=== PATIENT | female | born 1995 | race African-American/Black ===

== ENCOUNTER 2017-07-05 16:19 | Emergency (ER) | payer SELFPAY ==
[~2017-07-05] VITALS: Ht 160 cm; Wt 61.7 kg
[2017-07-05 16:57] VITALS: BP 111/71; PULSE 119
[2017-07-05 17:00] VITALS: RESP 16; TEMP 98.2
[2017-07-05] MEDS ORDERED: LACTATED RINGER'S 1000 ML INJ 1,000 ML IV SCH (17:16)
--- NOTE | 2017-07-05 17:24 | PD ---
HPI Chief Complaint N/V Date Seen: Jul 05, 2017 Time Seen: 17:10 Travel History International Travel<30 Days: No Contact w/Intl Traveler<30Days: No Known Affected Area: No History of Present Illness HPI Pt is a 22y/o G1 @ 28.4wks. She had PNC in [place] but recently relocated to [place] and is working on transitioning her Medicaid to start at [facility]. She presents today c/o N/V/D x 1.5d. She reports inability to tolerate any PO. No sick contacts. She has not eaten anything different than anyone else in her family. +FM. No LOF, VB, or ctx. is c/b Rh neg. (Had rhogam early in preg but not since). Weeks Gestation: 28 Para: 0 : 1 Last Menstrual Period: Jul 05, 2017 History Past Medical History Medical History: Denies Significant Hx Obstetric History Obstetric History 1. current Past Surgical History Surgical History: No Previous Surgery Family History Family History: Negative Social History Alcohol Use: No Tobacco Use: No Substance Abuse: Yes (occasional MJ) Allergies-Medications (Allergen,Severity, Reaction): Coded Allergies: No Known Allergies (Verified Allergy, Unknown, 07/05/17) Review of Systems Except as stated in HPI: all other systems reviewed are Neg Physical Exam Vital Signs Date Time Temp Pulse Resp B/P (MAP) Pulse Ox O2 Delivery O2 Flow Rate FiO2 07/05/17 17:00 98.2 07/05/17 17:00 16 07/05/17 16:57 119 111/71 (84) Narrative General: well developed, well nourished, no acute distress HEENT: normocephalic atraumatic, extraocular movements intact, neck supple Abdomen: soft, gravid, nontender, nondistended Extremities: full range of motion Skin: normal coloration, no rashes Neurologic: cranial nerves 2-12 grossly intact, normal muscle tone, normal gait Psychiatric: normal mood and affect, appropriate FHTs: 135, +accels, no decels, moderate variability, reactive [place]: irritable Cvx: deferred Data Data Vital Signs Reviewed: Yes Orders Orders Vital Signs (Adult) .ON ADMISSION (07/05/17 16:31) ^ Labor Status (07/05/17 16:31) Urinalysis - C+S If Indicated (07/05/17 16:31) Vital Signs (Adult) .ON ADMISSION (07/05/17 17:16) ^ Labor Status (07/05/17 17:16) ^ Non Stress Test (07/05/17 17:16) ^ Hydration (07/05/17 17:16) Lactated Ringer's 1000 Ml Inj (Lr 1000 M (07/05/17 17:16) Ondansetron Inj (Zofran Inj) (07/05/17 17:30) MDM Plan 22y/o G1 @ 28.4wks with N/V/D. -- likely viral gastroenteritis or food poisoning -- IVF boluses, IV zofran -- PO challenge -- check UA Discussed importance of PNC. Provided handout for [facility]. Diagnosis Diagnosis: Primary Impression: 28 weeks gestation of Additional Impression: Nausea, vomiting, and diarrhea Ken Dennis MD Jul 05, 2017 17:24
[2017-07-05] MEDS ORDERED: ONDANSETRON HCL 4 MG/2 ML VIAL IV PUSH ONE (17:30)
[2017-07-05 17:53] LABS: BLOOD, URINE NEG (NEG); COMMENT (UR) CULT NOT INDICATED; CULTURE IF INDICATED CULT NOT INDICATED; GLUCOSE,URINE NEG (NEG); KETONE, URINE 40 mg/dL (NEG); MUCUS URINE MANY /lpf (OCC); NITRITE,URINE NEG (NEG); SQUAMOUS EPITHELIAL CELL URINE 2 /hpf (0-5); URINE COLOR YELLOW (YELLW/STRAW)
== END 2017-07-05 19:44 | disposition home or self-care (01) ==
LOC: HOBED 16:19
DX: O21.2 Late vomiting of pregnancy (principal); Z3A.28 28 weeks gestation of pregnancy
CPT/HCPCS: 81001; 96361; 96374; 99284; J2405; J7120

== ENCOUNTER 2017-09-18 11:03 | Emergency (ER) | payer MEDICAID ==
[~2017-09-18] VITALS: Ht 160 cm; Wt 68.0 kg
[~2017-09-18 11:03] MED LIST: FERRTAB2 PO; ZANT150T2 PO
[2017-09-18 11:05] VITALS: BP 121/80; PULSE 130; RESP 14; TEMP 98.9; O2SAT 99
[2017-09-18] MEDS ORDERED: ONDANSETRON ODT 4 MG TAB PO ONE (11:45)
[2017-09-18] MEDS ORDERED: ACETAMINOPHEN 325 MG TAB PO ONE (11:45)
[2017-09-18 11:52] VITALS: PULSE 115; RESP 20
--- NOTE | 2017-09-18 11:56 | PD ---
HPI Chief Complaint: Cold / Flu Symptoms Time Seen by Provider: 11:30 Travel History International Travel<30 days: No Contact w/Intl Traveler<30days: No Traveled to known affect area: No History of Present Illness HPI 22 y/o who is 39 weeks estimated gestational age who presents by private vehicle for evaluation of cough, congestion, chills, myalgia, nausea, vomiting. Symptoms started 2 days ago. The cough is productive with yellow sputum. She reports 2-3 episodes of nonbloody emesis a day, particularly after she eats or drinks. The patient also reports that she has been experiencing lower abdominal lower back discomfort since yesterday which she describes as an aching pain which is constant and she like to go to the OB ED for evaluation of this pain. She denies any dysuria, flank pain, diarrhea, rash or recent travel. She does report that her cousins nephew was diagnosed with influenza this week and she has been contact with him. She has no other complaints at this time. [facility] Past Medical History ?: Social History Alcohol Use: No Tobacco Use: No Allergies-Medications (Allergen,Severity, Reaction): Coded Allergies: No Known Allergies (Verified Allergy, Unknown, 08/27/17) Reported Meds & Prescriptions Reported Meds & Active Scripts Active Zofran Odt (Ondansetron Odt) 4 Mg Tab 4 Mg SL Q6HR PRN Tamiflu (Oseltamivir Phosphate) 75 Mg Cap 75 Mg PO BID 5 Days Zantac (Ranitidine HCl) 150 Mg Tab 150 Mg PO BID Ferralet (Multi-Vit/Iron-Folic Pdxe-S90-Clk C) 90-1-0.012-120 mg Tab 1 Caplet PO DAILY 30 Days Review of Systems Except as stated in HPI: all other systems reviewed are Neg Physical Exam Narrative GENERAL: Pleasant well-developed well-nourished female in no acute distress. Tachycardic. SKIN: Warm and dry. HEAD: Atraumatic. Normocephalic. EYES: Pupils equal and round. No scleral icterus. No injection or drainage. ENT: No nasal bleeding or discharge. Mucous membranes pink and moist. No oral pharyngeal erythema or exudate. NECK: Trachea midline. No JVD. No lymphadenopathy. CARDIOVASCULAR: Regular rate and rhythm. No murmur appreciated. RESPIRATORY: No accessory muscle use. Clear to auscultation. Breath sounds equal bilaterally. No crackles. No wheezing. GASTROINTESTINAL: Abdomen gravid. MUSCULOSKELETAL: No obvious deformities. There is no CVA tenderness. NEUROLOGICAL: Awake and alert. No obvious cranial nerve deficits. Motor grossly within normal limits. Normal speech. Data Data Last Documented VS Vital Signs Date Time Temp Pulse Resp B/P (MAP) Pulse Ox O2 Delivery O2 Flow Rate FiO2 09/18/17 12:43 09/18/17 11:52 115 20 09/18/17 11:05 98.9 99 Orders Orders Influenzae A/B Antigen (09/18/17 11:38) Acetaminophen (Tylenol) (09/18/17 11:45) Oral Rehydration (09/18/17 11:38) Electrocardiogram (09/18/17 ) Ondansetron Odt (Zofran Odt) (09/18/17 11:45) Ed Discharge Order (09/18/17 12:19) [facility] Medical Decision Making Medical Screen Exam Complete: Yes Emergency Medical Condition: Yes Medical Record Reviewed: Yes Differential Diagnosis Influenza, gastroenteritis, hyperemesis, pneumonia, bronchitis Narrative Course 22-year-old female presents with 2 days of chills, myalgias, cough, congestion, nausea and vomiting. She is tachycardic which I suspect is secondary to low- grade fevers. She reports close contact with her nephews sun which was diagnosed with influenza this week. Her symptoms are most consistent with influenza. She will be given Tylenol, Zofran, oral rehydration. An influenza antigen test was performed. EKG reveals sinus tachycardia. Her heart rate improved during her hospital stay. She was able to tolerate oral hydration. She has positive for influenza A. She will be started on Tamiflu. She'll be transferred to OB ED for further evaluation. Diagnosis Primary Impression: Influenza A Additional Instructions: Medication as prescribed. Tylenol for fever. Stay well hydrated well- nourished. Cover mouth when coughing, wash hands frequently. Return for any emergent medical conditions. Med/Other Pt SpecificInfo: Prescription(s) given Scripts Ondansetron Odt (Zofran Odt) 4 Mg Tab 4 MG SL Q6HR Y for Nausea/Vomiting, #20 TAB 0 Refills Prov: Beatriz Guzman MD 09/18/17 Oseltamivir (Tamiflu) 75 Mg Cap 75 MG PO BID for Mgmt Viral Infection for 5 Days, #10 CAP 0 Refills Prov: Beatriz Guzman MD 09/18/17 Disposition: 01 DISCHARGE HOME Condition: Stable Chauncey Green Sep 18, 2017 11:56
[2017-09-18] MEDS ORDERED: OSEL75 PO (12:19)
[2017-09-18] MEDS ORDERED: ZOFR4TAB3 SL (12:19)
--- NOTE | 2017-09-18 13:30 | PD ---
Data Data Last Documented VS Vital Signs Date Time Temp Pulse Resp B/P (MAP) Pulse Ox O2 Delivery O2 Flow Rate FiO2 09/18/17 12:43 09/18/17 11:52 115 20 09/18/17 11:05 98.9 99 Orders Orders Influenzae A/B Antigen (09/18/17 11:38) Acetaminophen (Tylenol) (09/18/17 11:45) Oral Rehydration (09/18/17 11:38) Electrocardiogram (09/18/17 ) Ondansetron Odt (Zofran Odt) (09/18/17 11:45) Ed Discharge Order (09/18/17 12:19) [facility] Supervised Visit with NINA: Yes Narrative Course The history, exam, and medical decision-making in the associated midlevel provider note were completed with my assistance. I reviewed and agree with the findings presented. I attest that I had a [id number] encounter with the patient on the same day, and personally performed and documented my assessment and findings in the medical record. *My assessment and Findings: This is a 22-year-old female who presents to the emergency department with cold and flu symptoms as well as lower abdominal cramping which has been intermittent particularly when she coughs. She thinks she is having labor pains. She is 39 weeks . Influenza was positive. She is not hypoxic or toxic appearing. She will be started on Tamiflu. She was transferred to the emergency department for evaluation of contractions. Diagnosis Primary Impression: Influenza A Patient Instructions: General Instructions Departure Forms: Tests/Procedures Additional Instruction: Medication as prescribed. Tylenol for fever. Stay well hydrated well- nourished. Cover mouth when coughing, wash hands frequently. Return for any emergent medical conditions. Scripts Ondansetron Odt (Zofran Odt) 4 Mg Tab 4 MG SL Q6HR Y for Nausea/Vomiting, #20 TAB 0 Refills Prov: Beatriz Guzman MD 09/18/17 Oseltamivir (Tamiflu) 75 Mg Cap 75 MG PO BID for Mgmt Viral Infection for 5 Days, #10 CAP 0 Refills Prov: Beatriz Guzman MD 09/18/17 Disposition: 01 DISCHARGE HOME Condition: Stable Beatriz Guzman MD Sep 18, 2017 13:29
--- NOTE | 2017-09-18 14:24 | PD ---
HPI Chief Complaint Possible contractions, influenza Date Seen: Sep 18, 2017 Time Seen: 14:18 Travel History International Travel<30 Days: No Contact w/Intl Traveler<30Days: No Known Affected Area: No History of Present Illness HPI 22-year-old primigravida at 39 weeks gestation who comes today for evaluation of contractions. She was just in the emergency room and tested positive for influenza. Her last visit was last week and her cervix was closed at that time. She denies any leakage of fluid, bleeding or decreased movement. History Past Medical History Medical History: Denies Significant Hx Obstetric History Obstetric History Primigravida, treated for urinary tract infection in the first trimester Past Surgical History Surgical History: No Previous Surgery Social History Alcohol Use: No Tobacco Use: No Substance Abuse: No Allergies-Medications (Allergen,Severity, Reaction): Coded Allergies: No Known Allergies (Verified Allergy, Unknown, 08/27/17) Home Meds Active Scripts Ondansetron Odt (Zofran Odt) 4 Mg Tab, 4 MG SL Q6HR Y for Nausea/Vomiting, #20 TAB 0 Refills Prov:Beatriz Guzman MD 09/18/17 Oseltamivir (Tamiflu) 75 Mg Cap, 75 MG PO BID for Mgmt Viral Infection for 5 Days, #10 CAP 0 Refills Prov:Beatriz Guzman MD 09/18/17 Ranitidine (Zantac) 150 Mg Tab, 150 MG PO BID for Reduce Stomach Acid, #60 TAB 3 Refills Prov:Deidre Rosario SHEEP FARMER 09/03/17 Multi-Vit/Iron-Folic Amvs-G13-Rjm C (Ferralet) 90-1-0.012-120 mg Tab, 1 CAPLET PO DAILY for 30 Days, #30 CAPLET 2 Refills Prov:Atiya Navarro CNM SHEEP FARMER 08/17/17 Review of Systems HENT: Headaches Cardiovascular: No: Chest Pain or Discomfort Respiratory: Cough, No: Short of Breath, Wheezing Neurologic: No: Weakness, Syncope Physical Exam Vital Signs Date Time Temp Pulse Resp B/P (MAP) Pulse Ox O2 Delivery O2 Flow Rate FiO2 09/18/17 12:43 09/18/17 11:52 115 20 09/18/17 11:05 98.9 130 14 121/80 (94) 99 Narrative GENERAL: Well-nourished, well-developed patient. SKIN: Warm and dry. HEAD: Normocephalic and atraumatic. EYES: No scleral icterus. No injection or drainage. ENT: No nasal drainage noted. Mucous membranes pink. Airway patent. NECK: Supple, trachea midline. No JVD. CARDIOVASCULAR: Regular rate and rhythm without murmurs, gallops, or rubs. RESPIRATORY: Breath sounds equal bilaterally. No accessory muscle use. ABDOMEN/GI: Abdomen soft, non-tender, bowel sounds present, no rebound, no guarding Gravid to [-] weeks size Fundal Height: [-] GENITOURINARY: External Genitalia: intact and normal in appearance BUS glands: [-] Cervix: [-] Dilatation: [Closed-] Effacement: [-50%] Station: [-3-] Presentation: [Vertex-] Membranes: [intact ] Uterine Contractions: [Minimal] FHT's: Category: [-1] Baseline: [-] Reactive: [-] Variability: [-] Decels: [-] EXTREMITIES: No cyanosis or edema. BACK: Nontender without obvious deformity. No CVA tenderness. NEUROLOGICAL: Awake and alert. Motor and sensory grossly within normal limits. Five out of 5 muscle strength in all muscle groups. Normal speech. Data Data Orders Orders Influenzae A/B Antigen (09/18/17 11:38) Acetaminophen (Tylenol) (09/18/17 11:45) Oral Rehydration (09/18/17 11:38) Electrocardiogram (09/18/17 ) Ondansetron Odt (Zofran Odt) (09/18/17 11:45) Ed Discharge Order (09/18/17 12:19) Labs Date/Time Source Procedure Growth Status 09/18/17 11:53 Nasal Aspirate Influenza Types A,B Antigen ([facility]) - Final Positive For Flu A Antigen Complete MDM Medical Record Reviewed: Yes Narrative Course / MDM Assessment: A 39 week primigravida with influenza, not in labor Plan: The patient was given a prescription for Tamiflu. Precautions were given regarding worsening of her illness. Follow up for routine care. Diagnosis Diagnosis: Primary Impression: Influenza A Additional Impression: 39 weeks gestation of Disposition: 01 DISCHARGE HOME Condition: Stable Scripts Ondansetron Odt (Zofran Odt) 4 Mg Tab 4 MG SL Q6HR Y for Nausea/Vomiting, #20 TAB 0 Refills Prov: Beatriz Guzman MD 09/18/17 Oseltamivir (Tamiflu) 75 Mg Cap 75 MG PO BID for Mgmt Viral Infection for 5 Days, #10 CAP 0 Refills Prov: Beatriz Guzman MD 09/18/17 Patient Instructions: General Instructions Additional Instructions: Medication as prescribed. Tylenol for fever. Stay well hydrated well- nourished. Cover mouth when coughing, wash hands frequently. Return for any emergent medical conditions. Departure Forms: Tests/Procedures Austin Gaffney MD Sep 18, 2017 14:24
--- NOTE | 2017-09-20 00:23 | EKG ---
Date Performed: 09/18/2017 Time Performed: 12:00:24 PTAGE: 22 years EKG: SINUS TACHYCARDIA NONSPECIFIC T-WAVE ABNORMALITY ABNORMAL RHYTHM ECG NO PREVIOUS TRACING DOCTOR: Prince Richey Interpretating Date/Time 09/20/2017 00:22:26
== END 2017-09-18 14:35 | disposition home or self-care (01) ==
LOC: HOBED 11:03 → NEPD 12:45 → HOBED 12:45
DX: O99.513 Diseases of the respiratory system complicating pregnancy, third trimester (principal); J10.1 Influenza due to other identified influenza virus with other respiratory manifestations; O26.893 Other specified pregnancy related conditions, third trimester; R94.31 Abnormal electrocardiogram [ECG] [EKG]; Z3A.39 39 weeks gestation of pregnancy
CPT/HCPCS: 87804; 93005

== ENCOUNTER 2017-09-25 05:59 | Inpatient (IN) | payer MEDICAID ==
[2017-09-25] VITALS (8 sets, daily range): BP systolic 122–139; BP diastolic 66–84; PULSE 66–77; RESP 18; TEMP 97.9–98.1
[~2017-09-25] VITALS: Ht 160 cm; Wt 70.0 kg
[~2017-09-25 05:59] MED LIST changes: +OSEL75 PO; +ZOFR4TAB3 SL
[2017-09-25] MEDS ORDERED: LACTATED RINGER'S 1000 ML INJ 1,000 ML IV PRN (07:03)
--- NOTE | 2017-09-25 07:09 | PD ---
HPI Chief Complaint LOF Date Seen: Sep 25, 2017 Time Seen: 07:06 Travel History International Travel<30 Days: No Contact w/Intl Traveler<30Days: No Known Affected Area: No History of Present Illness HPI Pt is a 22y/o G1 @ 40.1wks. She has PNC at [facility]. She presents with c/ o SROM at 4am. Clear fluid with some spotting. No ctx. +FM. She denies any complications this . Weeks Gestation: 40 Para: 0 : 1 History Past Medical History Medical History: Denies Significant Hx Past Surgical History Surgical History: No Previous Surgery Family History Family History: Negative Social History Alcohol Use: No Tobacco Use: No Substance Abuse: No Allergies-Medications (Allergen,Severity, Reaction): Coded Allergies: No Known Allergies (Verified Allergy, Unknown, 08/27/17) Home Meds Active Scripts Ondansetron Odt (Zofran Odt) 4 Mg Tab, 4 MG SL Q6HR Y for Nausea/Vomiting, #20 TAB 0 Refills Prov:Beatriz Guzman MD 09/18/17 Oseltamivir (Tamiflu) 75 Mg Cap, 75 MG PO BID for Mgmt Viral Infection for 5 Days, #10 CAP 0 Refills Prov:Beatriz Guzman MD 09/18/17 Ranitidine (Zantac) 150 Mg Tab, 150 MG PO BID for Reduce Stomach Acid, #60 TAB 3 Refills Prov:Deidre Rosario CLAY DRY PRESS HELPER 09/03/17 Multi-Vit/Iron-Folic Gira-H54-Wkw C (Ferralet) 90-1-0.012-120 mg Tab, 1 CAPLET PO DAILY for 30 Days, #30 CAPLET 2 Refills Prov:Atiya Navarro CNM C[employer] PRESS HELPER 08/17/17 Review of Systems Except as stated in HPI: all other systems reviewed are Neg Physical Exam Narrative General: well developed, well nourished, no acute distress HEENT: normocephalic atraumatic, extraocular movements intact, neck supple Abdomen: soft, gravid, nontender, nondistended Uterus: fundus term Extremities: full range of motion Skin: normal coloration, no rashes, no suspicious skin lesions noted Neurologic: cranial nerves 2-12 grossly intact Psychiatric: normal mood and affect, appropriate FHTs: 135, +accels, no decels, moderate variability, reactive [place]: rare ctx Cvx: //-3, posterior Data Data Vital Signs Reviewed: Yes Orders Orders Vital Signs (Adult) .ON ADMISSION (09/25/17 07:03) ^ Labor Status (09/25/17 07:03) ^ Non Stress Test (09/25/17 07:03) Admit To Inpatient (09/25/17 ) Vital Signs (Adult) .Per protocol (09/25/17 07:03) Heart (09/25/17 07:03) Amnioinfusion (09/25/17 07:03) Urinary Catheter Management .ONCE (09/25/17 07:03) Diet Liquid (09/25/17 Breakfast) Lactated Ringer's 1000 Ml Inj (Lr 1000 M (09/25/17 07:03) Lactated Ringer's 1000 Ml Inj (Lr 1000 M (09/25/17 07:03) Sodium Chlorid 0.9% 500 Ml Inj (Ns 500 M (09/25/17 07:15) Sodium Chlor 0.9% 1000 Ml Inj (Ns 1000 M (09/25/17 07:23) Lidocaine 1% Inj (50 Ml) (Xylocaine 1% I (09/25/17 07:15) Citric Acid-Sodium Citrate Liq (Bicitra (09/25/17 07:15) Ondansetron Inj (Zofran Inj) (09/25/17 07:15) Fentanyl Inj (Fentanyl Inj) (09/25/17 07:15) Fentanyl Inj (Fentanyl Inj) (09/25/17 07:15) Complete Blood Count With Diff (09/25/17 07:03) Hold Clot (09/25/17 07:03) Abo/Rh Blood Type (09/25/17 07:03) Urinalysis - C+S If Indicated (09/25/17 07:03) Drug Screen, Random Urine (09/25/17 07:03) Resp Oxygen Non Rebreathe Mask (09/25/17 ) ^ Epidural / Intrathecal Infus (09/25/17 07:03) Oxytocin 30 Units-500ml Premix (Pitocin (09/25/17 07:15) Lidocaine 1% Inj (50 Ml) (Xylocaine 1% I (09/25/17 07:15) Light Mineral Oil (Muri-Lube Oil) (09/25/17 07:15) Inpatient Certification (09/25/17 ) ^ Labor Induction (09/25/17 07:03) Misoprostol (Cytotec) (09/25/17 11:15) ^ Non Stress Test (09/25/17 07:03) Response To Medication .Post New Med Administration, Reaction (09/25/17 07:03) ^ Discontinue Medication (09/25/17 07:03) Oxytocin Drip (-2-30) (09/25/17 07:15) Group B Strep: Negative MDM Plan 22y/o G1 @ 40.1wks with PROM. -- admit to L&D -- CLD, epidural/luis PRN -- cytotec --> pitocin induction -- GBS neg -- cat 1 tracing Diagnosis Diagnosis: Primary Impression: 40 weeks gestation of Additional Impression: PROM (premature rupture of membranes) Ken Dennis MD Sep 25, 2017 07:09
[2017-09-25] MEDS ORDERED: LIDOCAINE HCL 1% 50 ML VIAL INFIL PRN (07:15)
[2017-09-25] MEDS ORDERED: SODIUM CHLORID 0.9% 500 ML INJ 500 ML IV PRN (07:15)
[2017-09-25] MEDS ORDERED: ONDANSETRON HCL 4 MG/2 ML VIAL IV PUSH PRN (07:15)
[2017-09-25] MEDS ORDERED: MINERAL OIL 10 ML VIAL TOPICAL PRN (07:15)
[2017-09-25] MEDS ORDERED: OXYTOCIN 30 UNITS-500ML PREMIX 500 ML IV ONE (07:15)
[2017-09-25] MEDS ORDERED: LIDOCAINE HCL 1% 50 ML VIAL I-DERMAL PRN (07:15)
[2017-09-25] MEDS ORDERED: CITRIC ACID-SODIUM CITRATE LIQ 30 ML UDC PO SCH (07:15)
--- NOTE | 2017-09-25 07:21 | HHI.PR ---
[employer] Note Note HPI HPI Chief Complaint LOF Date Seen: Sep 25, 2017 Time Seen: 07:06 Travel History International Travel<30 Days: No Contact w/Intl Traveler<30Days: No Known Affected Area: No History of Present Illness HPI Pt is a 22y/o G1 @ 40.1wks. She has PNC at [facility]. She presents with c/ o SROM at 4am. Clear fluid with some spotting. No ctx. +FM. She denies any complications this . Weeks Gestation: 40 Para: 0 : 1 History (Limited) History Past Medical History Medical History: Denies Significant Hx Past Surgical History Surgical History: No Previous Surgery Family History Family History: Negative Social History Alcohol Use: No Tobacco Use: No Substance Abuse: No Allergies-Medications Allergies-Medications (Allergen,Severity, Reaction): Coded Allergies: No Known Allergies (Verified Allergy, Unknown, 08/27/17) Home Meds Active Scripts Ondansetron Odt (Zofran Odt) 4 Mg Tab, 4 MG SL Q6HR Y for Nausea/Vomiting, #20 TAB 0 Refills Prov:Beatriz Guzman MD 09/18/17 Oseltamivir (Tamiflu) 75 Mg Cap, 75 MG PO BID for Mgmt Viral Infection for 5 Days, #10 CAP 0 Refills Prov:Beatriz Guzman MD 09/18/17 Ranitidine (Zantac) 150 Mg Tab, 150 MG PO BID for Reduce Stomach Acid, #60 TAB 3 Refills Prov:Deidre Rosario WINTERIZER 09/03/17 Multi-Vit/Iron-Folic Ethv-O34-Sps C (Ferralet) 90-1-0.012-120 mg Tab, 1 CAPLET PO DAILY for 30 Days, #30 CAPLET 2 Refills Prov:Atiya Navarro CNM WINTERIZER 08/17/17 ROS Review of Systems Except as stated in HPI: all other systems reviewed are Neg Physical Exam Physical Exam Narrative General: well developed, well nourished, no acute distress HEENT: normocephalic atraumatic, extraocular movements intact, neck supple Abdomen: soft, gravid, nontender, nondistended Uterus: fundus term Extremities: full range of motion Skin: normal coloration, no rashes, no suspicious skin lesions noted Neurologic: cranial nerves 2-12 grossly intact Psychiatric: normal mood and affect, appropriate FHTs: 135, +accels, no decels, moderate variability, reactive [place]: rare ctx Cvx: 1/th/-3, posterior Data Data Data Vital Signs Reviewed: Yes Orders Orders Vital Signs (Adult) .ON ADMISSION (09/25/17 07:03) ^ Labor Status (09/25/17 07:03) ^ Non Stress Test (09/25/17 07:03) Admit To Inpatient (09/25/17 ) Vital Signs (Adult) .Per protocol (09/25/17 07:03) Heart (09/25/17 07:03) Amnioinfusion (09/25/17 07:03) Urinary Catheter Management .ONCE (09/25/17 07:03) Diet Liquid (09/25/17 Breakfast) Lactated Ringer's 1000 Ml Inj (Lr 1000 M (09/25/17 07:03) Lactated Ringer's 1000 Ml Inj (Lr 1000 M (09/25/17 07:03) Sodium Chlorid 0.9% 500 Ml Inj (Ns 500 M (09/25/17 07:15) Sodium Chlor 0.9% 1000 Ml Inj (Ns 1000 M (09/25/17 07:23) Lidocaine 1% Inj (50 Ml) (Xylocaine 1% I (09/25/17 07:15) Citric Acid-Sodium Citrate Liq (Bicitra (09/25/17 07:15) Ondansetron Inj (Zofran Inj) (09/25/17 07:15) Fentanyl Inj (Fentanyl Inj) (09/25/17 07:15) Fentanyl Inj (Fentanyl Inj) (09/25/17 07:15) Complete Blood Count With Diff (09/25/17 07:03) Hold Clot (09/25/17 07:03) Abo/Rh Blood Type (09/25/17 07:03) Urinalysis - C+S If Indicated (09/25/17 07:03) Drug Screen, Random Urine (09/25/17 07:03) Resp Oxygen Non Rebreathe Mask (09/25/17 ) ^ Epidural / Intrathecal Infus (09/25/17 07:03) Oxytocin 30 Units-500ml Premix (Pitocin (09/25/17 07:15) Lidocaine 1% Inj (50 Ml) (Xylocaine 1% I (09/25/17 07:15) Light Mineral Oil (Muri-Lube Oil) (09/25/17 07:15) Inpatient Certification (09/25/17 ) ^ Labor Induction (09/25/17 07:03) Misoprostol (Cytotec) (09/25/17 11:15) ^ Non Stress Test (09/25/17 07:03) Response To Medication .Post New Med Administration, Reaction (09/25/17 07:03) ^ Discontinue Medication (09/25/17 07:03) Oxytocin Drip (2-2-30) (09/25/17 07:15) Group B Strep: Negative MDM MDM Plan 22y/o G1 @ 40.1wks with PROM. -- admit to L&D -- CLD, epidural/luis PRN -- cytotec --> pitocin induction -- GBS neg -- cat 1 tracing Diagnosis Diagnosis: Primary Impression: 40 weeks gestation of Additional Impression: PROM (premature rupture of membranes) Ken Dennis MD Sep 25, 2017 07:09 Ken Dennis MD Sep 25, 2017 07:21
[2017-09-25] MEDS ORDERED: SODIUM CHLOR 0.9% 1000 ML INJ 1,000 ML IV PRN (07:23)
[2017-09-25] MEDS ORDERED: OXYTOCIN 30 UNITS-500ML PREMIX 500 ML IV PRN (07:45)
[2017-09-25] MEDS: LACTATED RINGER'S 1000 ML INJ 1,000 ML IV SCH ×3 (08:28→17:17)
[2017-09-25] MEDS ORDERED: MISOPROSTOL 25 MCG TAB VAGINAL ONE ×3 (08:30→17:15)
[2017-09-25 08:57] LABS: BILIRUBIN, URINE NEG (NEG); BLOOD, URINE TRACE (NEG); GLUCOSE,URINE NEG (NEG); KETONE, URINE NEG (NEG); NITRITE,URINE NEG (NEG); PH, URINE 6.5 (5.0-8.5); SQUAMOUS EPITHELIAL CELL URINE <1 /hpf (0-5); URINE COLOR YELLOW (YELLW/STRAW); URINE LEUKOCYTE ESTERASE TRACE (NEG)
[2017-09-25 09:16] LABS: AUTOMATED NEUTROPHIL # 2.6 TH/MM3 (1.8-7.7); BASOPHIL % 0.6 % (0.0-2.0); EOSINOPHIL # 0.1 TH/MM3 (0-0.4); HEMATOCRIT 33.7 % (35.0-46.0); HEMOGLOBIN 10.4 GM/DL (11.6-15.3); LYMPH % 37.7 % (9.0-44.0); LYMPHOCYTE # 1.9 TH/MM3 (1.0-4.8); MEAN CELL VOLUME 65.4 FL (80.0-100.0); MEAN CORPUSCULAR HEMOGLOBIN 20.3 PG (27.0-34.0); MEAN PLATELET VOLUME 8.5 FL (7.0-11.0); MONOCYTE # 0.5 TH/MM3 (0-0.9); NEUT % 51.7 % (16.0-70.0); PLATELET COUNT 259 TH/MM3 (150-450); RED BLOOD COUNT 5.15 MIL/MM3 (4.00-5.30); RED CELL DISTRIBUTION WIDTH 20.4 % (11.6-17.2); WHITE BLOOD COUNT 5.1 TH/MM3 (4.0-11.0)
[2017-09-25] MEDS ORDERED: MISOPROSTOL 100 MCG TAB VAGINAL PRN (11:15)
[2017-09-26] VITALS (11 sets, daily range): BP systolic 108–141; BP diastolic 54–87; PULSE 74–98; RESP 15–28; TEMP 97.6–98.7; O2SAT 99–100
[2017-09-26] MEDS ORDERED: ceFAZolin INJ 1,000 MG VIAL ONE (00:29)
[2017-09-26] MEDS ORDERED: MORPHINE SULFATE PF 5 MG/10 ML VIAL ONE (00:34)
[2017-09-26] MEDS ORDERED: ONDANSETRON HCL 4 MG/2 ML VIAL IV PUSH PRN (01:45)
[2017-09-26] MEDS ORDERED: SIMETHICONE 80 MG CHEWABLE TAB PO PRN (01:45)
[2017-09-26] MEDS ORDERED: ACETAMINOPHEN 325 MG TAB PO PRN (01:45)
[2017-09-26] MEDS ORDERED: KETOROLAC TROMETHAMINE 60 MG/2 ML (IM) VIAL IM PRN (01:45)
[2017-09-26] MEDS ORDERED: ZOLPIDEM TARTRATE 5 MG TAB PO PRN (01:45)
[2017-09-26] MEDS ORDERED: SODIUM CHLORIDE 0.9% FLUSH 10 ML FLUSH IV FLUSH PRN (01:45)
[2017-09-26] MEDS ORDERED: CEFAZOLIN INJ 2,000 MG in SODIUM CHLORIDE 0.9% INJ 100 ML IV SCH (01:45)
[2017-09-26] MEDS ORDERED: OXYTOCIN 30 UNITS-500ML PREMIX 500 ML IV ONE (01:45)
[2017-09-26] MEDS ORDERED: KETOROLAC TROMETHAMINE 60 MG/2 ML (IM) VIAL IM ONE (02:43)
[2017-09-26] MEDS ORDERED: EPIDURAL-NALOXONE HCL 0.4 MG/ML AMP IV PUSH PRN (03:45)
[2017-09-26] MEDS ORDERED: EPIDURAL-DO NOT ADMINISTER ANTICOAGULANTS PRN (03:45)
[2017-09-26] MEDS ORDERED: EPIDURAL-DIPHENHYDRAMINE HCL 50 MG CAP PO PRN (03:45)
[2017-09-26] MEDS ORDERED: EPIDURAL-DIPHENHYDRAMINE HCL 50 MG/ML VIAL IV PUSH PRN (03:45)
[2017-09-26] MEDS ORDERED: EPIDURAL-NO SYSTEMIC NARCOTICS PRN (03:45)
[2017-09-26] MEDS: LACTATED RINGER'S 1000 ML INJ 1,000 ML IV SCH ×4 (07:03→16:42)
--- NOTE | 2017-09-26 07:47 | HHI.OB ---
Subjective Post Operative Day: 0 Remarks doing well , tolerating liq diet , bandage dry 2+ distention Objective Vitals/I&O Vital Signs Date Time Temp Pulse Resp B/P (MAP) Pulse Ox O2 Delivery O2 Flow Rate FiO2 09/26/17 03:15 98.0 80 18 119/76 (90) 100 09/26/17 02:52 100 09/26/17 02:52 97.6 09/26/17 02:52 74 28 124/73 (90) 09/26/17 02:30 74 17 100 09/26/17 02:30 121/70 (87) 09/26/17 02:17 77 121/66 (84) 09/26/17 02:17 21 100 09/26/17 02:02 88 19 141/67 (91) 100 09/26/17 01:45 97.6 09/26/17 01:45 99 09/26/17 01:45 96 15 108/54 (72) 09/25/17 21:30 97.9 18 09/25/17 21:27 73 139/77 (97) 09/25/17 20:00 98.0 77 18 127/84 (98) 09/25/17 15:50 98.0 18 09/25/17 15:20 66 134/81 (98) 09/25/17 12:38 98.0 18 09/25/17 10:37 67 18 122/66 (84) 09/25/17 10:36 98.1 Result Diagram: 09/25/17 0720 Objective Remarks GENERAL: Well-nourished, well-developed patient. CARDIOVASCULAR: Regular rate and rhythm without murmurs, gallops, or rubs. RESPIRATORY: Breath sounds equal bilaterally. No accessory muscle use. ABDOMEN/GI: Abdomen soft, non-tender, bowel sounds present. Incision: Clean, dry and intact. Fundus: Firm, non-tender at umbilicus. GENITOURINARY: Light to moderate bleeding. EXTREMITIES: No cyanosis or edema, non-tender, without signs of DVT. Medications and IVs Current Medications Medications (Trade) Dose Ordered Sig/Papa Route Start Time Stop Time Status Last Admin Lactated Ringer's 1,000 ml @ 125 mls/hr Q8H IV 09/25/17 07:03 09/25/17 17:17 Lactated Ringer's 1,000 ml @ 3,000 mls/hr Q20M PRN IV 09/25/17 07:03 Sodium Chloride 500 ml @ 1,000 mls/hr ONCE PRN IV 09/25/17 07:15 Sodium Chloride 1,000 ml @ 100 mls/hr Q10H PRN IV 09/25/17 07:23 (Xylocaine 1% Inj (50 ml)) 0.1 ml UNSCH X1 PRN I-DERMAL 09/25/17 07:15 09/28/17 07:14 (Bicitra Liq) 30 ml GLOVE WRAPPER PO 09/25/17 07:15 09/29/17 07:14 (Zofran Inj) 4 mg Q6H PRN IV PUSH 09/25/17 07:15 (fentaNYL INJ) 50 mcg Q1H PRN IV PUSH 09/25/17 07:15 09/25/17 16:19 (fentaNYL INJ) 100 mcg Q1H PRN IV PUSH 09/25/17 07:15 (Xylocaine 1% Inj (50 ml)) 10 ml UNSCH X1 PRN INFIL 09/25/17 07:15 09/27/17 07:14 (Muri-Lube Oil) 10 ml UNSCH PRN TOPICAL 09/25/17 07:15 Oxytocin 500 ml @ 0 mls/hr TITRATE PRN IV 09/25/17 07:45 Lactated Ringer's 1,000 ml @ 100 mls/hr Q10H IV 09/26/17 06:42 09/27/17 02:41 Oxytocin 500 ml @ 100 mls/hr UNSCH X1 PRN IV 09/26/17 11:45 09/27/17 11:44 (NS Flush) 2 ml BID IV FLUSH 09/26/17 09:00 (NS Flush) 2 ml UNSCH PRN IV FLUSH 09/26/17 01:45 (Mylicon Chew) 80 mg QID PRN PO 09/26/17 01:45 (Tylenol) 650 mg Q6H PRN PO 09/26/17 01:45 (Motrin) 600 mg Q6H PRN PO 09/26/17 01:45 (Toradol Inj) 60 mg UNSCH X1 PRN IM 09/26/17 01:45 09/27/17 01:44 09/26/17 02:51 (Percocet 5-325 Mg) 1 tab Q4H PRN PO 09/26/17 01:45 (Percocet 5-325 Mg) 2 tab Q4H PRN PO 09/26/17 01:45 (Tere-Colace) 2 tab Q12H PRN PO 09/26/17 01:45 (Ambien) 5 mg HS PRN PO 09/26/17 01:45 (M-M-R Ii Inj) 0.5 ml ONCE ONCE SQ 09/27/17 16:00 09/27/17 16:01 (Boostrix Inj) 0.5 ml ONCE ONCE IM 09/27/17 16:00 09/27/17 16:01 (Zofran Inj) 4 mg Q6H PRN IV PUSH 09/26/17 01:45 Cefazolin Sodium/ Dextrose 50 ml @ 100 mls/hr Q8H IV 09/26/17 08:00 09/26/17 16:29 Miscellaneous Information NO SYSTEMIC NARCOTICS TO BE GIVEN FO... UNSCH PRN .XX 09/26/17 03:45 09/27/17 03:44 (Narcan Inj) 0.4 mg UNSCH PRN IV PUSH 09/26/17 03:45 09/27/17 03:44 (Benadryl Inj) 25 mg Q6H PRN IV PUSH 09/26/17 03:45 09/27/17 03:44 09/26/17 04:00 (Benadryl) 50 mg Q6H PRN PO 09/26/17 03:45 09/27/17 03:44 Miscellaneous Information ALL NURSING DEPARTMENTS UNSCH PRN .XX 09/26/17 03:45 09/27/17 03:44 Assessment/Plan Assessment and Plan POD 0 AFVSS doing well no problems , suri diet Plan to advance postop care and diet Shaquille Escobedo II, MD Sep 26, 2017 07:47
[2017-09-26] MEDS: ceFAZolin 2 GM PREMIX 50 ML IV SCH ×2 (08:37→15:45)
[2017-09-26] MEDS ORDERED: SODIUM CHLORIDE 0.9% FLUSH 10 ML FLUSH IV FLUSH SCH (09:00)
[2017-09-26] MEDS: DOCUSATE SODIUM 50 MG/SENNA 8.6 MG TAB PO PRN ×2 (10:02→22:11)
[2017-09-26] MEDS: IBUPROFEN 600 MG TAB PO PRN ×3 (10:03→21:32)
[2017-09-26] MEDS: oxyCODONE/ACETAMINOPHEN 5 MG/325 MG TAB PO PRN ×4 (11:07→22:11)
[2017-09-26] MEDS ORDERED: OXYTOCIN 30 UNITS-500ML PREMIX 500 ML IV PRN (11:45)
[2017-09-27 02:30] VITALS: BP 135/84; PULSE 85; RESP 18; TEMP 98.4
[2017-09-27] MEDS: IBUPROFEN 600 MG TAB PO PRN ×3 (02:31→20:21)
[2017-09-27] MEDS: oxyCODONE/ACETAMINOPHEN 5 MG/325 MG TAB PO PRN ×5 (02:32→20:21)
--- NOTE | 2017-09-27 08:35 | HHI.OB ---
Subjective Post Operative Day: 1 Remarks Patient is a 22-year-old delivered at 40/2. Patient is post-op day 1 after primary c/s. Pain is well controlled, rates 5/10. Pt report burning with urination and increased frequency x1 day. Patient reports eating and drinking without any nausea or vomiting. Patient reports minimal bleeding. Patient has passed gas but no bowel movements. Patient is walking without lower extremity pain or shortness of breath. Patient reports desire for contraception and breast -feeding. Denies fever, chill, or back pain. Objective Vitals/I&O Vital Signs Date Time Temp Pulse Resp B/P (MAP) Pulse Ox O2 Delivery O2 Flow Rate FiO2 09/27/17 02:30 98.4 09/27/17 02:30 85 18 135/84 (101) 09/26/17 19:30 98.0 98 18 131/87 (102) 09/26/17 16:00 97.9 94 18 141/79 (99) 100 09/26/17 12:10 98.2 91 18 137/83 (101) 99 09/26/17 09:08 97.6 75 20 100 09/26/17 09:08 129/60 (83) Result Diagram: 09/25/17 0720 Objective Remarks GENERAL: Well-nourished, well-developed patient. CARDIOVASCULAR: Regular rate and rhythm without murmurs, gallops, or rubs. RESPIRATORY: Breath sounds equal bilaterally. No accessory muscle use. ABDOMEN/GI: Abdomen soft, non-tender, bowel sounds present. Incision: Clean, dry and intact. Fundus: Firm, non-tender at umbilicus. GENITOURINARY: Light to moderate bleeding. EXTREMITIES: No cyanosis or edema, non-tender, without signs of DVT. Medications and IVs Current Medications Medications (Trade) Dose Ordered Sig/Papa Route Start Time Stop Time Status Last Admin Lactated Ringer's 1,000 ml @ 125 mls/hr Q8H IV 09/25/17 07:03 09/25/17 17:17 Lactated Ringer's 1,000 ml @ 3,000 mls/hr Q20M PRN IV 09/25/17 07:03 Sodium Chloride 500 ml @ 1,000 mls/hr ONCE PRN IV 09/25/17 07:15 Sodium Chloride 1,000 ml @ 100 mls/hr Q10H PRN IV 09/25/17 07:23 (Xylocaine 1% Inj (50 ml)) 0.1 ml UNSCH X1 PRN I-DERMAL 09/25/17 07:15 09/28/17 07:14 (Bicitra Liq) 30 ml TENON MACHINE OPERATOR PO 09/25/17 07:15 09/29/17 07:14 (Zofran Inj) 4 mg Q6H PRN IV PUSH 09/25/17 07:15 (fentaNYL INJ) 50 mcg Q1H PRN IV PUSH 09/25/17 07:15 09/25/17 16:19 (fentaNYL INJ) 100 mcg Q1H PRN IV PUSH 09/25/17 07:15 (Muri-Lube Oil) 10 ml UNSCH PRN TOPICAL 09/25/17 07:15 Oxytocin 500 ml @ 0 mls/hr TITRATE PRN IV 09/25/17 07:45 Oxytocin 500 ml @ 100 mls/hr UNSCH X1 PRN IV 09/26/17 11:45 09/27/17 11:44 (NS Flush) 2 ml BID IV FLUSH 09/26/17 09:00 (NS Flush) 2 ml UNSCH PRN IV FLUSH 09/26/17 01:45 (Mylicon Chew) 80 mg QID PRN PO 09/26/17 01:45 09/26/17 22:11 (Tylenol) 650 mg Q6H PRN PO 09/26/17 01:45 (Motrin) 600 mg Q6H PRN PO 09/26/17 01:45 09/27/17 02:31 (Percocet 5-325 Mg) 1 tab Q4H PRN PO 09/26/17 01:45 09/26/17 22:11 (Percocet 5-325 Mg) 2 tab Q4H PRN PO 09/26/17 01:45 09/27/17 07:52 (Tere-Colace) 2 tab Q12H PRN PO 09/26/17 01:45 09/26/17 22:11 (Ambien) 5 mg HS PRN PO 09/26/17 01:45 (M-M-R Ii Inj) 0.5 ml ONCE ONCE SQ 09/27/17 16:00 09/27/17 16:01 (Boostrix Inj) 0.5 ml ONCE ONCE IM 09/27/17 16:00 09/27/17 16:01 (Zofran Inj) 4 mg Q6H PRN IV PUSH 09/26/17 01:45 Assessment/Plan Problem List: (1) delivery delivered ICD Codes: O82 - Encounter for delivery without indication Status: Acute Plan: Patient is a 22-year-old delivered via c/s at 40/2. Post-op Day 1 Pain is well controlled Patient was counseled to do 6 weeks of pelvic rest. Patient was counseled to set up f/u appointment in 1 week for incisional care. --Continue routine care --Motrin and Percocet when necessary for pain --Encourage OOB --Pelvic rest for 6 weeks will need follow-up appointment at that time. --Contraception: pt stated she is still thinking about it -Pt with urinary sxs, f/u UA --Anticipate discharge tomorrow Assessment and Plan POD 1 AFVSS doing well no problems , suri diet Plan to advance postop care and diet Shaan Doyle MD, R1 Sep 27, 2017 08:35
[2017-09-27 09:39] LABS: AUTOMATED NEUTROPHIL # 7.3 TH/MM3 (1.8-7.7); BASOPHIL % 0.4 % (0.0-2.0); EOSINOPHIL # 0.2 TH/MM3 (0-0.4); EOSINOPHIL % 1.5 % (0.0-4.0); HEMATOCRIT 25.9 % (35.0-46.0); HEMOGLOBIN 8.2 GM/DL (11.6-15.3); LYMPH % 18.8 % (9.0-44.0); LYMPHOCYTE # 1.9 TH/MM3 (1.0-4.8); MEAN CELL VOLUME 65.2 FL (80.0-100.0); MEAN CORPUSCULAR HEMOGLOBIN 20.5 PG (27.0-34.0); MEAN CORPUSCULAR HGB CONC 31.4 % (32.0-36.0); MEAN PLATELET VOLUME 8.6 FL (7.0-11.0); MONOCYTE # 0.8 TH/MM3 (0-0.9); NEUT % 71.3 % (16.0-70.0); PLATELET COUNT 260 TH/MM3 (150-450); RED BLOOD COUNT 3.98 MIL/MM3 (4.00-5.30); RED CELL DISTRIBUTION WIDTH 20.7 % (11.6-17.2); WHITE BLOOD COUNT 10.2 TH/MM3 (4.0-11.0)
[2017-09-27 10:15] VITALS: BP 131/73; PULSE 77; RESP 18
[2017-09-27 10:30] VITALS: TEMP 98
[2017-09-27] MEDS: LACTATED RINGER'S 1000 ML INJ 1,000 ML IV SCH (13:16)
--- NOTE | 2017-09-27 14:26 | MP ---
cc: SAHIL ESCOBEDO MD DATE OF SURGERY: 09/26/2017. PREOPERATIVE DIAGNOSIS: 1. Premature rupture of membranes at 40 weeks. 2. Labor induction. 3. Non-reassuring heart rate tracing. POSTOPERATIVE DIAGNOSIS: 1. Premature rupture of membranes at 40 weeks. 2. Labor induction. 3. Non-reassuring heart rate tracing. OPERATIVE PROCEDURE PERFORMED: Primary low transverse section. SURGEON: Sahil Escobedo MD. BOARDING HOUSE COOK: No captain assistant. ANESTHESIA: Spinal. PREOPERATIVE NOTE: The patient is a 22-year-old black female 1, para 0 at 40 weeks who had premature rupture of membranes at 4:30 a.m. on the day of her admission, 09/25. She closed the uterine cervix at the time. She had Cytotec cervical ripening as well as electronic monitoring. She contracted with Cytotec and after multiple doses and approximately 18 hours, she began to have repetitive late decelerations of the heart rate while maintaining good variability. The baby was not tolerating labor and the cervix was still closed and very posterior at the time. It was felt section would be needed if the baby's intolerance would not allow further augmentation. DESCRIPTION OF THE PROCEDURE IN DETAIL: The patient was taken to the operating room and placed in the supine position on the operating table. With adequate epidural anesthesia administered, she was prepped and draped for abdominal surgery. A Pfannenstiel incision was made in the lower abdomen and carried to the fascia sharply. The fascia was dissected off the rectus muscle and the rectus was split in the midline. The peritoneal cavity was entered sharply. The incision was extended superiorly and inferiorly. The bladder was placed on a bladder blade and the visceral peritoneum was reflected off the lower uterine segment and placed on the bladder blade. A transverse hysterotomy was made and extended bluntly bilaterally. Clear amniotic fluid was noted at that time. A female was delivered at 1:02 a.m. with weight 3290 grams, Apgars of 9 and 9. There were no complications. Cord pH was 7.34. Cord blood obtained. Delayed cord clamping done. The placenta was manually extracted. The uterus was exteriorized. The hysterotomy was closed in a running layer of #0 chromic followed by an imbricating suture of the same. Hemostasis was achieved and the bladder was reapproximated with a running stitch of 2-0 Vicryl. The ovaries and tubes were within normal limits. The uterus was elevated and blood suctioned from the cul-de-sac and gutters and the uterus was replaced in the peritoneal cavity. The parietal peritoneum was closed in a running layer of 2-0 Vicryl. The rectus muscle was reapproximated with stick ties of chromic. The fascia was then closed in a running layer of #0 Vicryl. The skin was closed with 3-0 Monocryl subcuticular stitch. A pressure dressing was applied. Estimated blood loss was 500 cc. There were no complications. Sponge, needle counts correct times two. The patient was taken to the recovery room in stable condition. MD MARK John/MARY /1:38 AM /2:16 PM
[2017-09-27 15:58] LABS: BACTERIA, URINE FEW /hpf; BILIRUBIN, URINE NEG (NEG); BLOOD, URINE LARGE (NEG); GLUCOSE,URINE NEG (NEG); KETONE, URINE NEG (NEG); MUCUS URINE MOD /lpf (OCC); NITRITE,URINE NEG (NEG); SQUAMOUS EPITHELIAL CELL URINE 7 /hpf (0-5); URINE COLOR RED (YELLW/STRAW); URINE LEUKOCYTE ESTERASE MOD (NEG)
[2017-09-27] MEDS ORDERED: MEASLES, MUMPS, RUBELLA VACCINE 0.5 ML VIAL SQ ONE (16:00)
[2017-09-27] MEDS ORDERED: DIPHTH/TETANUS/ACEL PERTUSSIS (BOOSTER) 0.5 ML VIAL/PFS IM ONE (16:00)
[2017-09-27 20:15] VITALS: BP 137/83; PULSE 83; RESP 18; TEMP 97.9
[2017-09-27] MEDS: DOCUSATE SODIUM 50 MG/SENNA 8.6 MG TAB PO PRN (20:20)
[2017-09-28] MEDS: IBUPROFEN 600 MG TAB PO PRN ×2 (01:40→08:16)
[2017-09-28] MEDS: oxyCODONE/ACETAMINOPHEN 5 MG/325 MG TAB PO PRN ×2 (01:42→08:17)
--- NOTE | 2017-09-28 07:13 | HHI.OB ---
Subjective Post Day: 2 Remarks Pt seen and examined this morning. day # 2 AFVSS overnight. Decreased lochia. Denies dysuria. No breast tenderness. She is feeding the baby via breast. Appetite good. No nausea or vomiting. Patient has not yet had a bowel movement, but does endorse bowel gas. Ambulating well. Denies calf pain or shortness of breath. Otherwise, she is doing well this morning and has no other concerns. Objective Vitals/I&O Vital Signs Date Time Temp Pulse Resp B/P (MAP) Pulse Ox O2 Delivery O2 Flow Rate FiO2 09/27/17 20:15 97.9 83 18 137/83 (101) 09/27/17 10:30 98.0 09/27/17 10:15 77 18 131/73 (92) Objective Remarks GENERAL: Well-nourished, well-developed patient. CARDIOVASCULAR: Regular rate and rhythm without murmurs, gallops, or rubs. RESPIRATORY: Breath sounds equal bilaterally. No accessory muscle use. ABDOMEN/GI: Abdomen soft, non-tender. Fundus: Firm, non-tender at umbilicus. Incision: Clean, dry and intact GENITOURINARY: Light to moderate bleeding. EXTREMITIES: No cyanosis or edema, non-tender, without signs of DVT. Medications and IVs Current Medications Medications (Trade) Dose Ordered Sig/Papa Route Start Time Stop Time Status Last Admin Lactated Ringer's 1,000 ml @ 125 mls/hr Q8H IV 09/25/17 07:03 09/25/17 17:17 Lactated Ringer's 1,000 ml @ 3,000 mls/hr Q20M PRN IV 09/25/17 07:03 Sodium Chloride 500 ml @ 1,000 mls/hr ONCE PRN IV 09/25/17 07:15 Sodium Chloride 1,000 ml @ 100 mls/hr Q10H PRN IV 09/25/17 07:23 (Xylocaine 1% Inj (50 ml)) 0.1 ml UNSCH X1 PRN I-DERMAL 09/25/17 07:15 09/28/17 07:14 (Bicitra Liq) 30 ml DRUG ROOM OPERATOR PO 09/25/17 07:15 09/29/17 07:14 (Zofran Inj) 4 mg Q6H PRN IV PUSH 09/25/17 07:15 (fentaNYL INJ) 50 mcg Q1H PRN IV PUSH 09/25/17 07:15 09/25/17 16:19 (fentaNYL INJ) 100 mcg Q1H PRN IV PUSH 09/25/17 07:15 (Muri-Lube Oil) 10 ml UNSCH PRN TOPICAL 09/25/17 07:15 Oxytocin 500 ml @ 0 mls/hr TITRATE PRN IV 09/25/17 07:45 (NS Flush) 2 ml BID IV FLUSH 09/26/17 09:00 (NS Flush) 2 ml UNSCH PRN IV FLUSH 09/26/17 01:45 (Mylicon Chew) 80 mg QID PRN PO 09/26/17 01:45 09/26/17 22:11 (Tylenol) 650 mg Q6H PRN PO 09/26/17 01:45 (Motrin) 600 mg Q6H PRN PO 09/26/17 01:45 09/28/17 01:40 (Percocet 5-325 Mg) 1 tab Q4H PRN PO 09/26/17 01:45 09/26/17 22:11 (Percocet 5-325 Mg) 2 tab Q4H PRN PO 09/26/17 01:45 09/28/17 01:42 (Tere-Colace) 2 tab Q12H PRN PO 09/26/17 01:45 09/27/17 20:20 (Ambien) 5 mg HS PRN PO 09/26/17 01:45 (Zofran Inj) 4 mg Q6H PRN IV PUSH 09/26/17 01:45 Assessment/Plan Problem List: (1) delivery delivered ICD Codes: O82 - Encounter for delivery without indication Status: Acute Plan: Patient is a 22-year-old delivered via c/s at 40/2. Post-op Day 2 Pain is well controlled Patient was counseled to do 6 weeks of pelvic rest. Patient was counseled to set up f/u appointment in 1 week for incisional care. --Continue routine care --Motrin and Percocet when necessary for pain --Encourage OOB --Pelvic rest for 6 weeks will need follow-up appointment at that time. --Contraception: Patient requested Depo shot, orders placed, discussed risks, benefits, and side effects all of which she verbally agreed to -Pt with urinary sxs; UA with large occult blood, moderate leukocyte esterase, few bacteria, and 124 WBC; UC pending; patient to be discharged with Keflex 500mg twice a day for 7 days --Anticipate discharge today Discharge Planning Today Herb Victor MD R2 Sep 28, 2017 07:13
[2017-09-28] MEDS ORDERED: PERI PO (08:15)
[2017-09-28] MEDS ORDERED: OXYC1TAB63 PO (08:15)
[2017-09-28] MEDS ORDERED: IBUP-232 PO (08:15)
--- NOTE | 2017-09-28 08:15 | HHI.DCPOC ---
Discharge Care Plan Diagnosis: (1) delivery delivered Report Symptoms to Your Doctor -Temperature above 100.5 degrees -Redness, of incision or excessive or foul smelling drainage -Unusual pain or calf pain -Increased vaginal bleeding -Painful or difficulty urinating -Feelings of extreme sadness or anxiety after 2 weeks Goals to Promote Your Health * To prevent worsening of your condition and complications * To maintain your health at the optimal level Directions to Meet Your Goals Take your medications as prescribed Follow your dietary instruction Follow activity as directed Ensure plenty of rest for recovery Drink fluids for hydration Keep your appointments as scheduled Take your immunizations and boosters as scheduled If your symptoms worsen call your PCP, if no PCP go to Urgent Care Center or Emergency Room Smoking is Dangerous to Your Health. Avoid second hand smoke Call the 24-hour crisis hotline for domestic abuse at Herb Victor MD R2 Sep 28, 2017 08:15
[2017-09-28] MEDS ORDERED: CEPH-460 PO (08:22)
[2017-09-28 08:30] VITALS: BP 130/82; PULSE 80; RESP 16; TEMP 98.1
[2017-09-28] MEDS ORDERED: medroxyPROGESTERone ACETATE SUSP 150 MG/ML SYRINGE IM ONE (11:00)
== END 2017-09-28 14:10 | disposition home or self-care (01) | DRG 766 ==
LOC: HOBED 05:59 → H2EA 07:19 → H1EA 09-26 03:12
PROVIDERS: ADMIT Obstetrics & Gynecology; ATTEND Obstetrics & Gynecology
PROC: 3E0P7VZ Introduction of Hormone into Female Reproductive, Via Natural or Artificial Opening (ICD-10-PCS; 2017-09-25)
PROC: 10D00Z1 Extraction of Products of Conception, Low, Open Approach (ICD-10-PCS; principal; 2017-09-26)
PROC: 3E0R3BZ Introduction of Anesthetic Agent into Spinal Canal, Percutaneous Approach (ICD-10-PCS; 2017-09-26)
PROC: 00HU33Z Insertion of Infusion Device into Spinal Canal, Percutaneous Approach (ICD-10-PCS; 2017-09-26)
DX: O42.02 Full-term premature rupture of membranes, onset of labor within 24 hours of rupture (principal); O76 Abnormality in fetal heart rate and rhythm complicating labor and delivery; Z37.0 Single live birth; Z3A.40 40 weeks gestation of pregnancy
CPT/HCPCS: 59025; 80307; 81001; 84112; 85025; 86900; 86901; 87086; 90715; J0690; J1050; J1200; J1885; J2274; J2590; J3010; J7120

== ENCOUNTER 2017-11-01 00:24 | Emergency (ER) | payer MEDICAID ==
[~2017-11-01] VITALS: Ht 160 cm; Wt 63.0 kg
[~2017-11-01 00:24] MED LIST changes: +CEPH-460 PO; +IBUP-232 PO; -OSEL75 PO; +OXYC1TAB63 PO; +PERI PO
[2017-11-01 00:56] VITALS: BP 122/79; PULSE 110; RESP 16; TEMP 99; O2SAT 100
[2017-11-01 05:59] LABS: BACTERIA, URINE FEW /hpf; BILIRUBIN, URINE NEG (NEG); BLOOD, URINE MOD (NEG); GLUCOSE,URINE NEG (NEG); KETONE, URINE NEG (NEG); MUCUS URINE FEW /lpf (OCC); NITRITE,URINE POS (NEG); SQUAMOUS EPITHELIAL CELL URINE 1 /hpf (0-5); URINE COLOR YELLOW (YELLW/STRAW); URINE LEUKOCYTE ESTERASE LARGE (NEG); WHITE BLOOD CELL CLUMPS MANY
--- NOTE | 2017-11-01 06:33 | PD ---
HPI Chief Complaint: Survey Researcher Problem/Complaint Time Seen by Provider: 06:31 Travel History International Travel<30 days: No Contact w/Intl Traveler<30days: No Traveled to known affect area: No History of Present Illness HPI 22-year-old female presents to the emergency department for complaint of dysuria and hematuria 2 days. Patient is 5 weeks status post C- section. Patient is done well. No fever or chills. Patient notes discomfort in the suprapubic area and has had marked bladder spasm post micturition. Patient has had no vaginal bleeding. Patient states incision site is tender as well but is mostly tender in the suprapubic area. No redness no drainage. Patient states that she is breast-feeding as well as giving her formula. Patient has not been sexually active. Patient rates discomfort as moderate to severe. Patient has appointment with her cider maker in the morning. PFSH Past Medical History Narrative Medical Negative past medical history; ; no tobacco use alcohol use substance use; nursing notes reviewed ?: Not Social History Alcohol Use: No Tobacco Use: No Substance Use: No Allergies-Medications (Allergen,Severity, Reaction): Coded Allergies: No Known Allergies (Verified Allergy, Unknown, 08/27/17) Reported Meds & Prescriptions Reported Meds & Active Scripts Active Keflex (Cephalexin) 500 Mg Cap 500 Mg PO Q12H Gnp Senna Plus 8.6-50 mg (Sennosides-Docusate Sodium) 8.6 Mg-50 Mg Tab 2 Tab PO Q12H PRN Oxycodone-Acetaminophen 5-325 (Oxycodone HCl/Acetaminophen) 5 Mg-325 Mg Tablet 1 Tab PO Q4H PRN Ibuprofen 600 Mg Tab 600 Mg PO Q6H PRN Zofran Odt (Ondansetron Odt) 4 Mg Tab 4 Mg SL Q6HR PRN Zantac (Ranitidine HCl) 150 Mg Tab 150 Mg PO BID Ferralet (Multi-Vit/Iron-Folic [id number] C) 90-1-0.012-120 mg Tab 1 Caplet PO DAILY 30 Days Review of Systems Except as stated in HPI: all other systems reviewed are Neg Physical Exam Narrative GENERAL: Well-developed well-nourished female no acute distress or respiratory distress SKIN: Warm and dry. HEAD: Normocephalic. EYES: No scleral icterus. No injection or drainage. NECK: Supple, trachea midline. No JVD or lymphadenopathy. CARDIOVASCULAR: Regular rate and rhythm without murmurs, gallops, or rubs. RESPIRATORY: Breath sounds equal bilaterally. No accessory muscle use. GASTROINTESTINAL: Abdomen soft, suprapubic tenderness without guarding or rebound well-healed scar, nondistended. Pelvic: External exam no blood no lesions no induration perineum intact MUSCULOSKELETAL: No cyanosis, or edema. BACK: Nontender without obvious deformity. No CVA tenderness. Data Data Last Documented VS Vital Signs Date Time Temp Pulse Resp B/P (MAP) Pulse Ox O2 Delivery O2 Flow Rate FiO2 11/01/17 00:56 99.0 110 16 122/79 (93) 100 Room Air Orders Orders Urinalysis - C+S If Indicated (11/01/17 05:17) Ed Urine Pregnancytest Poc (11/01/17 05:17) Urine Culture (11/01/17 05:20) Cephalexin (Keflex) (11/01/17 06:45) Ed Discharge Order (11/01/17 06:31) Labs Laboratory Tests Test 11/01/17 05:20 Urine Color YELLOW Urine Turbidity CLOUDY Urine pH 6.0 Urine Specific [place] 1.018 Urine Protein 100 mg/dL Urine Glucose (UA) NEG mg/dL Urine Ketones NEG mg/dL Urine Occult Blood MOD Urine Nitrite POS Urine Bilirubin NEG Urine Urobilinogen LESS THAN 2.0 MG/DL Urine Leukocyte Esterase LARGE Urine RBC 172 /hpf Urine WBC /hpf Urine WBC Clumps MANY Urine Squamous Epithelial Cells 1 /hpf Urine Bacteria FEW /hpf Urine Mucus FEW /lpf Microscopic Urinalysis Comment CULTURE INDICATED MDM Medical Decision Making Medical Screen Exam Complete: Yes Emergency Medical Condition: Yes Medical Record Reviewed: Yes Interpretation(s) [id number] hCG: Negative Urinalysis: Positive nitrites positive leukocyte esterase and innumerable white blood cells clumped white blood cells positive bacteria culture indicated Differential Diagnosis UTI, cystitis, endometritis, pelvic pain, pelvic abscess Narrative Course Specimens collected and sent for resulting Urinalysis positive nitrites positive leukocyte Estrace positive WBCs positive bacteria culture indicated; [id number] hCG negative Patient given first dose of oral antibiotic and stable for outpatient management Diagnosis Primary Impression: UTI (urinary tract infection) Referrals: Ice Scraper 1 day Patient Instructions: General Instructions Additional Instructions: Increase fluid hydration Take acetaminophen/Tylenol as needed for pain or for fever 100.4F or greater May take ibuprofen/Advil/Motrin follow package instructions for pain associated with inflammation or for fever 100.4F or greater Return to the emergency department for any concerns or change in condition Complete course of antibiotic as prescribed Follow-up with your cider maker Med/Other Pt SpecificInfo: Prescription(s) given Disposition: 01 DISCHARGE HOME Condition: Stable Tricia Torres MD Nov 01, 2017 06:33
[2017-11-01] MEDS ORDERED: CEPHALEXIN MONOHYDRATE 500 MG CAP PO ONE (06:45)
[2017-11-02] MEDS ORDERED: CEPH-460 PO (18:15)
== END 2017-11-01 07:37 | disposition home or self-care (01) ==
LOC: NED 00:24 → NEPC 07:37
DX: O86.20 Urinary tract infection following delivery, unspecified (principal); B96.20 Unspecified Escherichia coli [E. coli] as the cause of diseases classified elsewhere
CPT/HCPCS: 81001; 87077; 87086; 87186; 99284